=== PATIENT | male | born 1940 | race Caucasian/White ===

== ENCOUNTER → 2018-07-18 14:58 | Outpatient (CLI) | payer MEDICARE, SELFPAY ==
[2018-07-18 15:42] LABS: Add Manual Diff / Slide Review NO; Basophils Percent Auto 1.2 % (0-2); Eosinophils Percent Auto 0.4 % (2-4); Hematocrit 44.8 % (41-53); Hemoglobin 15.5 g/dL (13.5-17.5); Lymphocytes Percent Auto 31.4 % (25-40); Mean Corpuscular HGB Conc 34.5 % (30-36); Mean Corpuscular Hemoglobin 35.2 PG (26-34); Mean Corpuscular Volume 102.1 fL (80-100); Monocytes Percent Auto 8.5 % (3-14); Neutrophils Absolute Auto 2900 /uL (1500-7000); Neutrophils Percent Auto 58.5 % (50-75); Platelet Count 300 X10^3/uL (150-400); Red Blood Cell Count 4.39 X10^6/uL (4.5-5.9); Red Cell Distribution Width 13.2 % (11.6-14.8); White Blood Cell Count 4.9 X10^3/uL (4.5-11.0)
[2018-07-18 16:13] LABS: Alanine Aminotransferase 29 IU/L (21-72); Albumin 4.4 g/dL (3.5-5.0); Albumin Globulin Ratio 1.5 (1.0-2.8); Alkaline Phosphatase 72 U/L (38-126); Aspartate Aminotransferase 29 IU/L (17-59); Bilirubin Total 0.8 mg/dL (0.2-1.3); Blood Urea Nitrogen 16 mg/dL (9-20); Calcium 9.4 mg/dL (8.4-10.2); Carbon Dioxide 27 mmol/L (22-32); Chloride 101 mmol/L (98-107); Cholesterol 262 mg/dL (140-199); Estimated Glomerular Filt Rate > 60.0 mL/min (>60); Globulin 2.9 g/dL (1.7-4.1); Glucose 100 mg/dL (80-110); HDL Cholesterol 104 mg/dL (40-60); HEMOLYSIS < 15 (0-50); LDL Cholesterol Calculated 133 mg/dL (<100); Potassium 4.2 mmol/L (3.4-5.1); Sodium 138 mmol/L (137-145); Total Protein 7.3 g/dL (6.3-8.2); Triglycerides 126 mg/dL (35-150)
== END ==
PROVIDERS: PCP Internal Medicine; Visit Provider Internal Medicine
DX: E78.00 Pure hypercholesterolemia, unspecified (principal); I10 Essential (primary) hypertension; R73.01 Impaired fasting glucose
CPT/HCPCS: 36415; 80053; 80061; 84153; 85025

== ENCOUNTER → 2018-10-31 08:41 | Outpatient (CLI) | payer MEDICARE, SELFPAY ==
[2018-10-31 09:46] LABS: Cholesterol 267 mg/dL (140-199); HDL Cholesterol 97 mg/dL (40-60); LDL Cholesterol Calculated 149 mg/dL (<100); Triglycerides 103 mg/dL (35-150)
[2018-11-02 16:07] LABS: PSA Free % 16 % (calc) (> 25); PSA, Total 11.4 ng/mL (< 4.1)
== END ==
PROVIDERS: Family Provider Urology; PCP Internal Medicine; Visit Provider Internal Medicine
DX: E78.00 Pure hypercholesterolemia, unspecified (principal); Z12.5 Encounter for screening for malignant neoplasm of prostate
CPT/HCPCS: 36415; 80061; 84153; 84154

== ENCOUNTER → 2019-12-09 10:14 | Outpatient (CLI) | payer MEDICARE, SELFPAY ==
--- NOTE | 2019-12-09 | DI.CT.S_ITS ---
PROCEDURE: CT HEAD/BRAIN WO CON INDICATIONS: Other amnesia TECHNIQUE: Noncontrast 4.5 mm thick angled axial sections acquired from the foramen magnum to the vertex, with coronal and sagittal reformats. For radiation dose reduction, the following was used: automated exposure control, adjustment of mA and/or kV according to patient size. COMPARISON: None. FINDINGS: Image quality: Excellent. CSF spaces: Basal cisterns are patent. No extra-axial fluid collections. The ventricles are symmetric in size and shape. Brain: No intracranial bleeds or masses. There is cerebral volume loss for age, with resultant ventricular and sulcal prominence. There are periventricular and deep white matter chronic small vessel ischemic changes. There is intracranial internal carotid artery atherosclerosis. Skull and face: Calvarium and visualized facial bones appear intact, without suspicious lesions. Sinuses: Visualized sinuses and mastoids are clear. IMPRESSION: 1. No acute intracranial process. 2. Moderate atrophy and chronic microvascular ischemic changes. Dictated by: Vale Calderon M.D. on 12/09/2019 at 12:12 Approved by: Vale Calderon M.D. on 12/09/2019 at 12:14
[2019-12-09 13:12] LABS: Alanine Aminotransferase 21 IU/L (<50); Albumin 4.3 g/dL (3.5-5.0); Albumin Globulin Ratio 1.3 (1.0-2.8); Alkaline Phosphatase 80 U/L (38-126); Aspartate Aminotransferase 34 IU/L (17-59); BUN Creatinine Ratio 18.4 (6-22); Bilirubin Total 0.8 mg/dL (0.2-1.3); Blood Urea Nitrogen 14 mg/dL (9-20); Calcium 9.3 mg/dL (8.4-10.2); Carbon Dioxide 29 mmol/L (22-32); Chloride 102 mmol/L (98-107); Cholesterol 263 mg/dL (140-199); Estimated Glomerular Filt Rate > 60.0 mL/min (>60); Globulin 3.3 g/dL (1.7-4.1); Glucose 106 mg/dL (80-110); HDL Cholesterol 80 mg/dL (40-60); HEMOLYSIS < 15 (0-50); LDL Cholesterol Calculated 147 mg/dL (<100); Potassium 4.1 mmol/L (3.4-5.1); Sodium 137 mmol/L (137-145); Total Protein 7.6 g/dL (6.3-8.2); Triglycerides 179 mg/dL (35-150)
[2019-12-09 14:01] LABS: Vitamin B12 677 pg/mL (239-931)
[2019-12-09 14:02] LABS: Thyroid Stimulating Hormone 1.87 uIU/mL (0.47-4.68)
== END ==
PROVIDERS: Family Provider Urology; PCP Internal Medicine; Referring Provider Internal Medicine; Visit Provider Internal Medicine
DX: R41.3 Other amnesia (principal)
CPT/HCPCS: 36415; 70450; 80053; 80061; 82607; 84443

== ENCOUNTER → 2020-05-28 11:24 | Outpatient (CLI) | payer MEDICARE, SELFPAY ==
[2020-05-28 14:27] LABS: Add Manual Diff / Slide Review NO; Basophils Absolute Auto 100 /uL (0-100); Eosinophils Absolute Auto 0 /uL (0-450); Eosinophils Percent Auto 0.4 % (2-4); Hematocrit 42.8 % (41-53); Hemoglobin 14.8 g/dL (13.5-17.5); Lymphocytes Absolute Auto 1300 /uL (1100-4500); Lymphocytes Percent Auto 21.1 % (25-40); Mean Corpuscular HGB Conc 34.6 % (30-36); Mean Corpuscular Hemoglobin 35.1 PG (26-34); Mean Corpuscular Volume 101.5 fL (80-100); Monocytes Absolute Auto 500 /uL (0-900); Monocytes Percent Auto 7.5 % (3-14); Neutrophils Absolute Auto 4200 /uL (1500-7000); Platelet Count 303 X10^3/uL (150-400); Red Blood Cell Count 4.21 X10^6/uL (4.5-5.9); Red Cell Distribution Width 12.9 % (11.6-14.8)
[2020-05-28 15:09] LABS: Alanine Aminotransferase 29 IU/L (<50); Albumin 4.3 g/dL (3.5-5.0); Albumin Globulin Ratio 1.4 (1.0-2.8); Alkaline Phosphatase 78 U/L (38-126); Aspartate Aminotransferase 44 IU/L (17-59); BUN Creatinine Ratio 25.9 (6-22); Bilirubin Total 0.9 mg/dL (0.2-1.3); Blood Urea Nitrogen 21 mg/dL (9-20); Calcium 9.1 mg/dL (8.4-10.2); Carbon Dioxide 29 mmol/L (22-32); Chloride 104 mmol/L (98-107); Cholesterol 192 mg/dL (140-199); Estimated Glomerular Filt Rate > 60.0 mL/min (>60); Globulin 3.1 g/dL (1.7-4.1); Glucose 99 mg/dL (80-110); HDL Cholesterol 93 mg/dL (40-60); HEMOLYSIS 41 (0-50); LDL Cholesterol Calculated 80 mg/dL (<100); Potassium 4.7 mmol/L (3.4-5.1); Sodium 138 mmol/L (137-145); Total Protein 7.4 g/dL (6.3-8.2); Triglycerides 94 mg/dL (35-150)
== END ==
PROVIDERS: Family Provider Urology; PCP Internal Medicine; Referring Provider Internal Medicine; Visit Provider Internal Medicine
DX: E78.2 Mixed hyperlipidemia (principal); I10 Essential (primary) hypertension
CPT/HCPCS: 36415; 80053; 80061; 85025

== ENCOUNTER → 2021-11-15 14:36 | Outpatient (CLI) | payer OTHER, SELFPAY ==
[2021-11-15 17:06] LABS: COVID-19 CEPHEID PCR (VTM/NP) Negative (Negative)
== END ==
PROVIDERS: Family Provider Urology; PCP Internal Medicine; Visit Provider Family Medicine Sleep Medicine
DX: Z20.822 Contact with and (suspected) exposure to COVID-19 (principal)
CPT/HCPCS: C9803; U0003; U0005

== ENCOUNTER 2022-10-23 12:31 | Inpatient (IN) | payer MEDICARE, SELFPAY ==
[2022-10-23] VITALS (32 sets, daily range): BP systolic 165–233; BP diastolic 73–110; PULSE 48–80; RESP 12–26; TEMP 36.6–36.9; O2SAT 94–100; BMI 24.5
--- NOTE | 2022-10-23 12:44 | ED.GENADULT ---
HPI - General Adult General Stated complaint: chest pain SOB Time Seen by Provider: 10/23/22 12:43 Discharge Plan Departure Referrals: Kostas Grady MD [Primary Care Provider] -
--- NOTE | 2022-10-23 12:45 | DI.RAD.S_ITS ---
PROCEDURE: XR CHEST 1V INDICATIONS: chest pain TECHNIQUE: One view of the chest was acquired. COMPARISON: None. FINDINGS: Surgical changes and devices: None. Lungs and pleura: Lungs are clear except for mild bibasilar atelectasis. No pleural effusions or pneumothorax. Mediastinum: Mediastinal contours appear normal. Heart size is normal. Bones and chest wall: No suspicious bony lesions. Overlying soft tissues appear unremarkable. IMPRESSION: Bibasilar atelectasis, no acute abnormality. Dictated by: Emanuel Ortega M.D. on 10/23/2022 at 13:02 Approved by: Emanuel Ortega M.D. on 10/23/2022 at 13:03
[2022-10-23 12:57] LABS: Add Manual Diff / Slide Review NO; Basophils Absolute Auto 100 /uL (0-100); Basophils Percent Auto 0.9 % (0-2); Eosinophils Absolute Auto 0 /uL (0-450); Eosinophils Percent Auto 0.4 % (2-4); Hematocrit 46.5 % (41-53); Hemoglobin 16.1 g/dL (13.5-17.5); Lymphocytes Absolute Auto 1300 /uL (1100-4500); Lymphocytes Percent Auto 18.3 % (25-40); Mean Corpuscular HGB Conc 34.5 % (30-36); Mean Corpuscular Hemoglobin 34.3 PG (26-34); Mean Corpuscular Volume 99.3 fL (80-100); Monocytes Absolute Auto 600 /uL (0-900); Monocytes Percent Auto 8.2 % (3-14); Neutrophils Absolute Auto 5000 /uL (1500-7000); Neutrophils Percent Auto 72.2 % (50-75); Platelet Count 288 X10^3/uL (150-400); Red Blood Cell Count 4.68 X10^6/uL (4.5-5.9); Red Cell Distribution Width 13.5 % (11.6-14.8); White Blood Cell Count 6.9 X10^3/uL (4.5-11.0)
[2022-10-23] MEDS: ASPIRIN 81 MG CHEW TAB 324 MG PO (12:59)
[2022-10-23] MEDS: SODIUM CHLORIDE 0.9% 1,000 ML 150 ML IV (13:00)
[2022-10-23 13:09] LABS: Alanine Aminotransferase 56 IU/L (<50); Albumin 4.4 g/dL (3.5-5.0); Albumin Globulin Ratio 1.2 (1.0-2.8); Alkaline Phosphatase 124 U/L (38-126); Aspartate Aminotransferase 45 IU/L (17-59); BUN Creatinine Ratio 20.5 (6-22); Bilirubin Total 1.1 mg/dL (0.2-1.3); Blood Urea Nitrogen 18 mg/dL (9-20); Calcium 9.4 mg/dL (8.4-10.2); Carbon Dioxide 27 mmol/L (22-32); Chloride 101 mmol/L (98-107); Creatine Kinase 69 U/L (55-170); Estimated Glomerular Filt Rate > 60 mL/min (>60); Globulin 3.7 g/dL (1.7-4.1); Glucose 112 mg/dL (80-110); HEMOLYSIS < 15 (0-50); Lipase 180 U/L (23-300); Potassium 3.7 mmol/L (3.4-5.1); Sodium 136 mmol/L (137-145); Total Protein 8.1 g/dL (6.3-8.2)
[2022-10-23 13:21] LABS: NT-proBNP (BNP-Adult 18+) 348 pg/mL (<450); Troponin I < 0.012 ng/mL (0.01-0.034)
[2022-10-23 13:26] LABS: Procalcitonin 0.06 ng/mL (<0.5)
--- NOTE | 2022-10-23 13:26 | DI.CT.S_ITS ---
PROCEDURE: CT HEAD/BRAIN WO CON INDICATIONS: chest pain TECHNIQUE: Noncontrast 4.5 mm thick angled axial sections acquired from the foramen magnum to the vertex, with coronal and sagittal reformats. For radiation dose reduction, the following was used: automated exposure control, adjustment of mA and/or kV according to patient size. COMPARISON: [facility], CT, CT HEAD/BRAIN WO CON, 12/09/2019, 10:22. FINDINGS: Image quality: Excellent. CSF spaces: Basal cisterns are patent. No extra-axial fluid collections. Ventricles are normal in size and shape. Brain: No midline shift. No intracranial masses or hemorrhage. Macias-white matter interface is normal. Moderate cerebral and cerebellar volume loss with multifocal white matter chronic ischemic change noted. Atherosclerotic calcification noted associated with cavernous segments of both internal carotid arteries. Skull and face: Calvarium and visualized facial bones are intact, without suspicious lesions. Sinuses: Visualized sinuses and mastoids are clear. IMPRESSION: Moderate atrophy and chronic ischemic change without intracranial hemorrhage or mass effect Approved by: Jcarlos Tamayo M.D. on 10/23/2022 at 13:02
--- NOTE | 2022-10-23 14:07 | ED_ITS ---
HPI - Chest Pain <Nereida Guadarrama PA-C - Last Filed: 10/23/22 16:19> General Chief Complaint: Chest Pain Stated Complaint: chest pain SOB Time Seen by Provider: 10/23/22 12:43 Source: patient and family Mode of arrival: Ambulatory Limitations: no limitations History of Present Illness HPI narrative: 82-year-old male with past medical history dementia, hyperlipidemia presents to the ED with 1 day of left-sided chest pain, shortness of breath. 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 In the ED, patient denies any symptoms. Unable to obtain a ROS from patient due to the dementia, however history was provided by his . She states that he has not had any other symptoms recently including fevers, chills, runny nose, cough, nausea, vomiting, abdominal pain, dysuria, diarrhea, lightheadedness, dizziness, syncope. Patient was hypertensive with the highest reading being 231/110. Patient's states that he does not currently take any antihypertensives. He did use to take some several years ago but she is unsure why it was stopped. Related Data Home Medications Medication Instructions Recorded Confirmed atorvastatin 20 mg tablet 20 mg PO DAILY 10/23/22 10/23/22 donepezil 10 mg tablet 10 mg PO QPM 10/23/22 10/23/22 Allergies Allergy/AdvReac Type Severity Reaction Status Date / Time No Known Drug Allergies Allergy Verified 10/23/22 13:04 Review of Systems <Nereida Guadarrama PA-C - Last Filed: 10/23/22 16:19> Review of Systems ROS Unobtainable: All systems reviewed & are unremarkable except as noted in HPI and below Constitutional Constitutional: Denies chills, Denies fatigue, Denies fever(s), Denies frequent falls, Denies lethargy and Denies weakness Eyes Eyes: Denies change in vision, Denies eye discharge, Denies irritation and Denies loss of vision ENT Ears, Nose, Mouth, and Throat: Denies change in voice, Denies dizziness, Denies neck pain, Denies sore throat and Denies throat swelling Cardiovascular Cardiovascular: Reports chest pain, Denies irregular heart rhythm, Denies lightheadedness, Denies palpitations, Reports dyspnea, Denies dyspnea on exertion and Denies orthopnea Respiratory Respiratory: Denies cough, Reports dyspnea, Denies dyspnea on exertion and Denies wheezing Gastrointestinal Gastrointestinal: Denies abdominal pain, Denies change in bowel habits, Denies diarrhea, Denies nausea and Denies vomiting Genitourinary Genitourinary: Denies hematuria, Denies flank pain, Denies urinary incontinence and Denies urinary urgency Musculoskeletal Musculoskeletal: Denies back pain, Denies muscle weakness, Denies neck pain, Denies numbness and Denies tingling Integumentary/Breasts Skin/Breast: Denies pruritus, Denies erythema, Denies rash and Denies wounds Neurologic Neurologic: Denies behavioral changes, Denies confusion, Denies dizziness, Denies frequent falls, Denies loss of vision, Denies numbness, Denies tingling and Denies weakness Psychiatric Psychiatric: Denies anxiety, Denies behavioral changes, Denies confusion, Denies depression, Denies homicidal ideation and Denies suicidal ideation Endocrine Endocrine: Denies fatigue, Denies flushing and Denies palpitations Hematologic/Lymphatic Hematologic/Lymphatic: Denies easy bruising Allergic/Immunologic Allergic/Immunologic: Denies urticaria, Denies throat swelling and Denies wheezing Patient History <Nereida Guadarrama PA-C - Last Filed: 10/23/22 16:19> Social History household members: spouse Smoking Status: Never smoker alcohol intake: current Smoking Status: Never smoker alcohol intake frequency: 0-2 drinks per day Substance Use Type: does not use Exam <Nereida Guadarrama PA-C - Last Filed: 10/23/22 16:19> Narrative Exam Narrative: Const General:?cooperative, healthy appearing and comfortable [facility] Head:?normal to inspection Ears:?hearing grossly normal bilaterally Nose:?external nose normal Face and sinus:?normal facial exam and sinuses nontender Mouth:?oral mucosae normal Throat:?posterior oropharynx normal Eyes General:?appearance normal, both eyes and all related structures Neck Neck:?normal visual inspection and no lymphadenopathy noted Resp Effort & Inspection:?normal respiratory effort Auscultation:?clear to auscultation bilaterally Cardio Rate:?regular rate Rhythm:?regular rhythm Neuro General:?patient alert, patient awake and patient oriented x3 Initial Vital Signs Initial Vital Signs: Vital Signs Temperature 98.5 F 10/23/22 12:39 Pulse Rate 80 10/23/22 12:39 Respiratory Rate 20 10/23/22 12:39 Blood Pressure 227/89 H 10/23/22 12:39 Pulse Oximetry 98 10/23/22 12:39 Oxygen Delivery Method Room Air 10/23/22 12:39 <Eric Brumfield DO - Last Filed: 10/23/22 16:47> Initial Vital Signs Initial Vital Signs: Vital Signs Temperature 98.5 F 10/23/22 12:39 Pulse Rate 80 10/23/22 12:39 Respiratory Rate 20 10/23/22 12:39 Blood Pressure 227/89 H 10/23/22 12:39 Pulse Oximetry 98 10/23/22 12:39 Oxygen Delivery Method Room Air 10/23/22 12:39 Course <Nereida Guadarrama PA-C - Last Filed: 10/23/22 16:19> Orders Ordered: ED Orders 10/23/22 12:14 Complete Blood Count AUTO DIFF Stat Comprehensive Metabolic Panel Stat Lipase Stat NT-proBNP (BNP-Adult 18+) Stat Procalcitonin Stat Troponin & CK Cardiac Panel Stat 10/23/22 12:41 EKG-12 Lead Routine 10/23/22 12:45 XR chest 1V Stat 10/23/22 13:26 CT head/brain wo con Stat 10/23/22 14:00 D Dimer Stat PTT Partial Thromboplastin Carlos Stat Prothrombin Time INR Stat Troponin & CK Cardiac Panel Stat 10/23/22 14:21 EKG-12 Lead Stat 10/23/22 15:23 COVID19 -Nasal RAPID Stat 10/23/22 20:00 Troponin I Urgent 10/24/22 05:00 Basic Metabolic Panel DAILY Complete Blood Count AUTO DIFF DAILY Hemoglobin A1C% w Est Avg Glu Routine Lipid Panel Routine Magnesium DAILY TSH w/ Reflex to FT4 Routine 10/25/22 05:00 Basic Metabolic Panel DAILY Complete Blood Count AUTO DIFF DAILY Magnesium DAILY 10/26/22 05:00 Basic Metabolic Panel DAILY Complete Blood Count AUTO DIFF DAILY Magnesium DAILY Acetaminophen (Acetaminophen 325 Mg Tablet) 650 mg PO Q6H PRN PRN Reason: Fever/Mild Pain (1-3) Atorvastatin Calcium (Atorvastatin 20 Mg Tablet) 20 mg PO DAILY GITA Donepezil HCl (Donepezil 5 Mg Tablet) 10 mg PO QPM GITA Naloxone HCl (Naloxone 0.4 Mg/Ml Vial) 0.2 mg IV Q2MIN PRN PRN Reason: Opiate Reversal Discontinued Medications Aspirin (Aspirin 81 Mg Chew Tab) 324 mg PO NOW ONE Stop: 10/23/22 12:46 Last Admin: 10/23/22 12:59 Dose: 324 mg Documented By: TOVA Sodium Chloride (Normal Saline 0.9%) 1,000 mls @ 150 mls/hr IV CONT GITA Last Infusion: 10/23/22 16:18 Dose: 0 mls/hr Documented By: Admin: 10/23/22 13:00 Dose: 150 mls/hr Documented By: TOVA Labetalol HCl (Labetalol 20 Mg/4 Ml Syringe) 10 mg IV NOW ONE; Protocol Stop: 10/23/22 14:51 Last Admin: 10/23/22 15:15 Dose: 10 mg Documented By: TOVA Vital Signs Vital signs: Vital Signs - 8 hr 10/23/22 12:39 10/23/22 12:50 10/23/22 13:00 Temperature 98.5 F Pulse Rate 80 53 L 74 Respiratory Rate 20 15 23 Blood Pressure 227/89 H Pulse Oximetry 98 99 97 Oxygen Delivery Method Room Air 10/23/22 13:04 10/23/22 13:04 10/23/22 13:10 Temperature Pulse Rate 58 L Respiratory Rate 20 Blood Pressure 231/110 H 233/100 H Pulse Oximetry 98 Oxygen Delivery Method 10/23/22 13:10 10/23/22 13:21 10/23/22 13:21 Temperature Pulse Rate 59 L 55 L Respiratory Rate 16 16 Blood Pressure 230/97 H Pulse Oximetry 98 99 Oxygen Delivery Method Room Air 10/23/22 13:30 10/23/22 13:45 10/23/22 13:55 Temperature Pulse Rate 70 56 L Respiratory Rate 19 21 Blood Pressure 217/102 H Pulse Oximetry 97 98 Oxygen Delivery Method 10/23/22 13:55 10/23/22 14:00 10/23/22 14:00 Temperature Pulse Rate 52 L 52 L Respiratory Rate 16 21 Blood Pressure 208/98 H Pulse Oximetry 98 99 Oxygen Delivery Method 10/23/22 14:10 10/23/22 14:10 10/23/22 14:15 Temperature Pulse Rate 56 L 50 L Respiratory Rate 18 19 Blood Pressure 219/105 H Pulse Oximetry 96 99 Oxygen Delivery Method 10/23/22 14:20 10/23/22 14:20 10/23/22 14:30 Temperature Pulse Rate 51 L Respiratory Rate 20 Blood Pressure 208/99 H 202/91 H Pulse Oximetry 99 Oxygen Delivery Method 10/23/22 14:30 10/23/22 14:40 10/23/22 14:40 Temperature Pulse Rate 62 60 Respiratory Rate 18 12 Blood Pressure 212/102 H Pulse Oximetry 98 98 Oxygen Delivery Method 10/23/22 14:45 10/23/22 15:15 10/23/22 14:54 Temperature Pulse Rate 51 L 53 L Respiratory Rate 14 Blood Pressure 199/88 H 189/101 H Pulse Oximetry 99 Oxygen Delivery Method 10/23/22 14:54 10/23/22 15:00 10/23/22 15:00 Temperature Pulse Rate 53 L 56 L Respiratory Rate 21 21 Blood Pressure 195/91 H Pulse Oximetry 99 99 Oxygen Delivery Method 10/23/22 15:10 10/23/22 15:10 10/23/22 15:15 Temperature Pulse Rate 55 L 51 L Respiratory Rate 17 25 H Blood Pressure 199/88 H Pulse Oximetry 100 99 Oxygen Delivery Method 10/23/22 15:20 10/23/22 15:20 10/23/22 15:22 Temperature Pulse Rate 52 L Respiratory Rate 24 Blood Pressure 203/91 H 183/87 H Pulse Oximetry 98 Oxygen Delivery Method 10/23/22 15:22 10/23/22 15:30 10/23/22 15:30 Temperature Pulse Rate 51 L 48 L Respiratory Rate 16 20 Blood Pressure 176/83 H Pulse Oximetry 98 97 Oxygen Delivery Method Room Air 10/23/22 15:40 10/23/22 15:40 10/23/22 15:45 Temperature Pulse Rate 48 L 52 L Respiratory Rate 20 26 H Blood Pressure 181/87 H Pulse Oximetry 97 97 Oxygen Delivery Method 10/23/22 15:58 10/23/22 15:58 Temperature Pulse Rate 48 L Respiratory Rate 18 Blood Pressure 210/91 H Pulse Oximetry 96 Oxygen Delivery Method <Eric Brumfield, DO - Last Filed: 10/23/22 16:47> Orders Ordered: ED Orders 10/23/22 12:14 Complete Blood Count AUTO DIFF Stat Comprehensive Metabolic Panel Stat Lipase Stat NT-proBNP (BNP-Adult 18+) Stat Procalcitonin Stat Troponin & CK Cardiac Panel Stat 10/23/22 12:41 EKG-12 Lead Routine 10/23/22 12:45 XR chest 1V Stat 10/23/22 13:26 CT head/brain wo con Stat 10/23/22 14:00 D Dimer Stat PTT Partial Thromboplastin Carlos Stat Prothrombin Time INR Stat Troponin & CK Cardiac Panel Stat 10/23/22 14:21 EKG-12 Lead Stat 10/23/22 15:23 COVID19 -Nasal RAPID Stat 10/23/22 20:00 Troponin I Urgent 10/24/22 05:00 Basic Metabolic Panel DAILY Complete Blood Count AUTO DIFF DAILY Hemoglobin A1C% w Est Avg Glu Routine Lipid Panel Routine Magnesium DAILY TSH w/ Reflex to FT4 Routine 10/25/22 05:00 Basic Metabolic Panel DAILY Complete Blood Count AUTO DIFF DAILY Magnesium DAILY 10/26/22 05:00 Basic Metabolic Panel DAILY Complete Blood Count AUTO DIFF DAILY Magnesium DAILY Acetaminophen (Acetaminophen 325 Mg Tablet) 650 mg PO Q6H PRN PRN Reason: Fever/Mild Pain (1-3) Atorvastatin Calcium (Atorvastatin 20 Mg Tablet) 20 mg PO DAILY GITA Donepezil HCl (Donepezil 5 Mg Tablet) 10 mg PO QPM GITA Naloxone HCl (Naloxone 0.4 Mg/Ml Vial) 0.2 mg IV Q2MIN PRN PRN Reason: Opiate Reversal Discontinued Medications Aspirin (Aspirin 81 Mg Chew Tab) 324 mg PO NOW ONE Stop: 10/23/22 12:46 Last Admin: 10/23/22 12:59 Dose: 324 mg Documented By: TOVA Sodium Chloride (Normal Saline 0.9%) 1,000 mls @ 150 mls/hr IV CONT GITA Last Infusion: 10/23/22 16:18 Dose: 0 mls/hr Documented By: Admin: 10/23/22 13:00 Dose: 150 mls/hr Documented By: TOVA Labetalol HCl (Labetalol 20 Mg/4 Ml Syringe) 10 mg IV NOW ONE; Protocol Stop: 10/23/22 14:51 Last Admin: 10/23/22 15:15 Dose: 10 mg Documented By: TOVA Vital Signs Vital signs: Vital Signs - 8 hr 10/23/22 12:39 10/23/22 12:50 10/23/22 13:00 Temperature 98.5 F Pulse Rate 80 53 L 74 Respiratory Rate 20 15 23 Blood Pressure 227/89 H Pulse Oximetry 98 99 97 Oxygen Delivery Method Room Air 10/23/22 13:04 10/23/22 13:04 10/23/22 13:10 Temperature Pulse Rate 58 L Respiratory Rate 20 Blood Pressure 231/110 H 233/100 H Pulse Oximetry 98 Oxygen Delivery Method 10/23/22 13:10 10/23/22 13:21 10/23/22 13:21 Temperature Pulse Rate 59 L 55 L Respiratory Rate 16 16 Blood Pressure 230/97 H Pulse Oximetry 98 99 Oxygen Delivery Method Room Air 10/23/22 13:30 10/23/22 13:45 10/23/22 13:55 Temperature Pulse Rate 70 56 L Respiratory Rate 19 21 Blood Pressure 217/102 H Pulse Oximetry 97 98 Oxygen Delivery Method 10/23/22 13:55 10/23/22 14:00 10/23/22 14:00 Temperature Pulse Rate 52 L 52 L Respiratory Rate 16 21 Blood Pressure 208/98 H Pulse Oximetry 98 99 Oxygen Delivery Method 10/23/22 14:10 10/23/22 14:10 10/23/22 14:15 Temperature Pulse Rate 56 L 50 L Respiratory Rate 18 19 Blood Pressure 219/105 H Pulse Oximetry 96 99 Oxygen Delivery Method 10/23/22 14:20 10/23/22 14:20 10/23/22 14:30 Temperature Pulse Rate 51 L Respiratory Rate 20 Blood Pressure 208/99 H 202/91 H Pulse Oximetry 99 Oxygen Delivery Method 10/23/22 14:30 10/23/22 14:40 10/23/22 14:40 Temperature Pulse Rate 62 60 Respiratory Rate 18 12 Blood Pressure 212/102 H Pulse Oximetry 98 98 Oxygen Delivery Method 10/23/22 14:45 10/23/22 15:15 10/23/22 14:54 Temperature Pulse Rate 51 L 53 L Respiratory Rate 14 Blood Pressure 199/88 H 189/101 H Pulse Oximetry 99 Oxygen Delivery Method 10/23/22 14:54 10/23/22 15:00 10/23/22 15:00 Temperature Pulse Rate 53 L 56 L Respiratory Rate 21 21 Blood Pressure 195/91 H Pulse Oximetry 99 99 Oxygen Delivery Method 10/23/22 15:10 10/23/22 15:10 10/23/22 15:15 Temperature Pulse Rate 55 L 51 L Respiratory Rate 17 25 H Blood Pressure 199/88 H Pulse Oximetry 100 99 Oxygen Delivery Method 10/23/22 15:20 10/23/22 15:20 10/23/22 15:22 Temperature Pulse Rate 52 L Respiratory Rate 24 Blood Pressure 203/91 H 183/87 H Pulse Oximetry 98 Oxygen Delivery Method 10/23/22 15:22 10/23/22 15:30 10/23/22 15:30 Temperature Pulse Rate 51 L 48 L Respiratory Rate 16 20 Blood Pressure 176/83 H Pulse Oximetry 98 97 Oxygen Delivery Method Room Air 10/23/22 15:40 10/23/22 15:40 10/23/22 15:45 Temperature Pulse Rate 48 L 52 L Respiratory Rate 20 26 H Blood Pressure 181/87 H Pulse Oximetry 97 97 Oxygen Delivery Method 10/23/22 15:58 10/23/22 15:58 Temperature Pulse Rate 48 L Respiratory Rate 18 Blood Pressure 210/91 H Pulse Oximetry 96 Oxygen Delivery Method MDM - Chest Pain <Nereida Guadarrama PA-C - Last Filed: 10/23/22 16:19> Lab Data 10/23/22 12:14 10/23/22 12:14 Labs: Lab Results 10/23/22 10/23/22 10/23/22 Range/Units 12:14 12:14 14:00 WBC 6.9 (4.5-11.0) X10^3/uL RBC 4.68 (4.5-5.9) X10^6/uL Hgb 16.1 (13.5-17.5) g/dL Hct 46.5 (41-53) % MCV 99.3 (80-100) fL MCH 34.3 H (26-34) PG MCHC 34.5 (30-36) % RDW 13.5 (11.6-14.8) % Plt Count 288 (150-400) X10^3/uL Neut % (Auto) 72.2 (50-75) % Lymph % (Auto) 18.3 L (25-40) % [place] % (Auto) 8.2 (3-14) % Eos % (Auto) 0.4 L (2-4) % Baso % (Auto) 0.9 (0-2) % Neut # (Auto) 5000 (1583-6186) /uL Lymph # (Auto) 1300 (8970-5491) /uL [place] # (Auto) 600 (0-900) /uL Eos # (Auto) 0 (0-450) /uL Baso # (Auto) 100 (0-100) /uL PT 12.8 H (10.1-12.7) SECONDS INR 1.1 (0.9-1.3) APTT 30 (26-36) SECONDS D-Dimer 322 (<500) ng/ml Sodium 136 L (137-145) mmol/L Potassium 3.7 (3.4-5.1) mmol/L Chloride 101 (98-107) mmol/L Carbon Dioxide 27 (22-32) mmol/L BUN 18 (9-20) mg/dL Creatinine 0.88 (0.66-1.25) mg/dL Estimated GFR > 60 (>60) mL/min BUN/Creatinine Ratio 20.5 (6-22) Glucose 112 H (80-110) mg/dL Calcium 9.4 (8.4-10.2) mg/dL Total Bilirubin 1.1 (0.2-1.3) mg/dL AST 45 (17-59) IU/L ALT 56 H (<50) IU/L Alkaline Phosphatase 124 (38-126) U/L Total Creatine Kinase 69 (55-170) U/L CK-MB (CK-2) TNP CK-MB (CK-2) Rel Index TNP Troponin I < 0.012 (0.01-0.034) ng/mL NT-Pro-B Natriuret Pep 348 (<450) pg/mL Total Protein 8.1 (6.3-8.2) g/dL Albumin 4.4 (3.5-5.0) g/dL Globulin 3.7 (1.7-4.1) g/dL Albumin/Globulin Ratio 1.2 (1.0-2.8) Lipase 180 (23-300) U/L Procalcitonin 0.06 (<0.5) ng/mL SARS-CoV-2 (PCR) (Negative) 10/23/22 10/23/22 Range/Units 14:00 15:23 WBC (4.5-11.0) X10^3/uL RBC (4.5-5.9) X10^6/uL Hgb (13.5-17.5) g/dL Hct (41-53) % MCV (80-100) fL MCH (26-34) PG MCHC (30-36) % RDW (11.6-14.8) % Plt Count (150-400) X10^3/uL Neut % (Auto) (50-75) % Lymph % (Auto) (25-40) % [place] % (Auto) (3-14) % Eos % (Auto) (2-4) % Baso % (Auto) (0-2) % Neut # (Auto) (4563-2580) /uL Lymph # (Auto) (3361-9532) /uL [place] # (Auto) (0-900) /uL Eos # (Auto) (0-450) /uL Baso # (Auto) (0-100) /uL PT (10.1-12.7) SECONDS INR (0.9-1.3) APTT (26-36) SECONDS D-Dimer (<500) ng/ml Sodium (137-145) mmol/L Potassium (3.4-5.1) mmol/L Chloride (98-107) mmol/L Carbon Dioxide (22-32) mmol/L BUN (9-20) mg/dL Creatinine (0.66-1.25) mg/dL Estimated GFR (>60) mL/min BUN/Creatinine Ratio (6-22) Glucose (80-110) mg/dL Calcium (8.4-10.2) mg/dL Total Bilirubin (0.2-1.3) mg/dL AST (17-59) IU/L ALT (<50) IU/L Alkaline Phosphatase (38-126) U/L Total Creatine Kinase 70 (55-170) U/L CK-MB (CK-2) TNP CK-MB (CK-2) Rel Index TNP Troponin I 0.063 H (0.01-0.034) ng/mL NT-Pro-B Natriuret Pep (<450) pg/mL Total Protein (6.3-8.2) g/dL Albumin (3.5-5.0) g/dL Globulin (1.7-4.1) g/dL Albumin/Globulin Ratio (1.0-2.8) Lipase (23-300) U/L Procalcitonin (<0.5) ng/mL SARS-CoV-2 (PCR) Negative (Negative) Urine Dip Bedside Urine Glucose Negative Bedside Urine Bilirubin - Negative Bedside Urine Ketone - Negative Urine Specific [place] 1.010 Bedside Urine Occult Blood - Negative Bedside Urine pH 8.5 Bedside Urine Protein - Negative Bedside Urine Urobilinogen - Negative Bedside Urine Nitrite - Negative Bedside Urine Leukocytes - Negative Esterase MDM Narrative Medical decision making narrative: 82-year-old male with past medical history dementia, hyperlipidemia presents to the ED with 1 day of left-sided chest pain, shortness of breath. Concern for ACS versus CHF exacerbation versus PE versus pneumonia versus URI versus hypertensive emergency other. Will obtain EKG, chest x-ray, labs, troponin, D- dimer, NT proBNP, CT head. Will reassess. EKG without acute ST-T changes. Sinus bradycardia, left axis deviation. Chest x-ray, labs without acute findings. D-dimer, NT proBNP within normal limits. CT head without acute findings. Initial troponin within normal limits. Repeat troponin elevated to 0.063. Patient given 10 mg of labetalol IV for blood press ure control. Blood pressure came down to 176/83. No chest pain. Cardiology was consulted, they recommend continued blood pressure control to keep systolic under 180, troponin bump likely due to demand from the elevated blood pressure. Hospitalist Dr. De Paz was consulted, he graciously agrees to admit the patient for observation and BP control. <Eric Brumfield, - Last Filed: 10/23/22 16:47> Lab Data Labs: Lab Results 10/23/22 10/23/22 10/23/22 Range/Units 12:14 12:14 14:00 WBC 6.9 (4.5-11.0) X10^3/uL RBC 4.68 (4.5-5.9) X10^6/uL Hgb 16.1 (13.5-17.5) g/dL Hct 46.5 (41-53) % MCV 99.3 (80-100) fL MCH 34.3 H (26-34) PG MCHC 34.5 (30-36) % RDW 13.5 (11.6-14.8) % Plt Count 288 (150-400) X10^3/uL Neut % (Auto) 72.2 (50-75) % Lymph % (Auto) 18.3 L (25-40) % [place] % (Auto) 8.2 (3-14) % Eos % (Auto) 0.4 L (2-4) % Baso % (Auto) 0.9 (0-2) % Neut # (Auto) 5000 (0903-2607) /uL Lymph # (Auto) 1300 (2867-5355) /uL [place] # (Auto) 600 (0-900) /uL Eos # (Auto) 0 (0-450) /uL Baso # (Auto) 100 (0-100) /uL PT 12.8 H (10.1-12.7) SECONDS INR 1.1 (0.9-1.3) APTT 30 (26-36) SECONDS D-Dimer 322 (<500) ng/ml Sodium 136 L (137-145) mmol/L Potassium 3.7 (3.4-5.1) mmol/L Chloride 101 (98-107) mmol/L Carbon Dioxide 27 (22-32) mmol/L BUN 18 (9-20) mg/dL Creatinine 0.88 (0.66-1.25) mg/dL Estimated GFR > 60 (>60) mL/min BUN/Creatinine Ratio 20.5 (6-22) Glucose 112 H (80-110) mg/dL Calcium 9.4 (8.4-10.2) mg/dL Total Bilirubin 1.1 (0.2-1.3) mg/dL AST 45 (17-59) IU/L ALT 56 H (<50) IU/L Alkaline Phosphatase 124 (38-126) U/L Total Creatine Kinase 69 (55-170) U/L CK-MB (CK-2) TNP CK-MB (CK-2) Rel Index TNP Troponin I < 0.012 (0.01-0.034) ng/mL NT-Pro-B Natriuret Pep 348 (<450) pg/mL Total Protein 8.1 (6.3-8.2) g/dL Albumin 4.4 (3.5-5.0) g/dL Globulin 3.7 (1.7-4.1) g/dL Albumin/Globulin Ratio 1.2 (1.0-2.8) Lipase 180 (23-300) U/L Procalcitonin 0.06 (<0.5) ng/mL SARS-CoV-2 (PCR) (Negative) 10/23/22 10/23/22 Range/Units 14:00 15:23 WBC (4.5-11.0) X10^3/uL RBC (4.5-5.9) X10^6/uL Hgb (13.5-17.5) g/dL Hct (41-53) % MCV (80-100) fL MCH (26-34) PG MCHC (30-36) % RDW (11.6-14.8) % Plt Count (150-400) X10^3/uL Neut % (Auto) (50-75) % Lymph % (Auto) (25-40) % [place] % (Auto) (3-14) % Eos % (Auto) (2-4) % Baso % (Auto) (0-2) % Neut # (Auto) (7436-7797) /uL Lymph # (Auto) (9886-5652) /uL [place] # (Auto) (0-900) /uL Eos # (Auto) (0-450) /uL Baso # (Auto) (0-100) /uL PT (10.1-12.7) SECONDS INR (0.9-1.3) APTT (26-36) SECONDS D-Dimer (<500) ng/ml Sodium (137-145) mmol/L Potassium (3.4-5.1) mmol/L Chloride (98-107) mmol/L Carbon Dioxide (22-32) mmol/L BUN (9-20) mg/dL Creatinine (0.66-1.25) mg/dL Estimated GFR (>60) mL/min BUN/Creatinine Ratio (6-22) Glucose (80-110) mg/dL Calcium (8.4-10.2) mg/dL Total Bilirubin (0.2-1.3) mg/dL AST (17-59) IU/L ALT (<50) IU/L Alkaline Phosphatase (38-126) U/L Total Creatine Kinase 70 (55-170) U/L CK-MB (CK-2) TNP CK-MB (CK-2) Rel Index TNP Troponin I 0.063 H (0.01-0.034) ng/mL NT-Pro-B Natriuret Pep (<450) pg/mL Total Protein (6.3-8.2) g/dL Albumin (3.5-5.0) g/dL Globulin (1.7-4.1) g/dL Albumin/Globulin Ratio (1.0-2.8) Lipase (23-300) U/L Procalcitonin (<0.5) ng/mL SARS-CoV-2 (PCR) Negative (Negative) Urine Dip Bedside Urine Glucose Negative Bedside Urine Bilirubin - Negative Bedside Urine Ketone - Negative Urine Specific [place] 1.010 Bedside Urine Occult Blood - Negative Bedside Urine pH 8.5 Bedside Urine Protein - Negative Bedside Urine Urobilinogen - Negative Bedside Urine Nitrite - Negative Bedside Urine Leukocytes - Negative Esterase Discharge Plan Departure Patient Disposition: Admitted as Observation Clinical Impression: Hypertension Admit Date/Time: 10/23/22 15:58 Admit Provider: Samir De Paz <Eric Brumfield DO - Last Filed: 10/23/22 16:47> Cosign ED Attending Cosignature Attestation: I was immediately available in the department for consultation. This documentation has been reviewed and I agree with assessment and plan. Supervised by Eric Brumfield DO
[2022-10-23 14:31] LABS: Creatine Kinase 70 U/L (55-170)
[2022-10-23 14:44] LABS: Troponin I 0.063 ng/mL (0.01-0.034)
[2022-10-23] MEDS: LABETALOL 20 MG/4 ML SYRINGE 10 MG IV (15:15)
[2022-10-23 15:38] LABS: INR 1.1 (0.9-1.3); Prothrombin Time 12.8 SECONDS (10.1-12.7)
[2022-10-23 15:40] LABS: D Dimer 322 ng/ml (<500)
[2022-10-23 15:41] LABS: PTT Partial Thromboplastin Tim 30 SECONDS (26-36)
[2022-10-23 15:46] LABS: COVID19 -Nasal RAPID Negative (Negative)
--- NOTE | 2022-10-23 18:11 | PM.HP.1 ---
History of Present Illness History of Present Illness Date Patient Seen: 10/23/22 Time Patient Seen: 18:12 Chief complaint: chest pain SOB Narrative: This is an 82-year-old male with a past medical history of dementia, hyperlipidemia (PCP Dr. Grady) who was brought in by his for chest pain and shortness of breath. He was doing his usual workout with his personal financial representative today, on the way back home he started complaining of some left-sided chest pressure and difficulty breathing. The pressure was left-sided, nonradiating, and other than shortness of breath he denied any diaphoresis, palpitations. He denies recent lower extremity edema or dyspnea on exertion. He has no prior cardiac history. He does have a history of hypertension, though with his continued exercise to come off of medications. His last PCP follow-up was about a year ago. He denies any recent fever, chills, cough. History limited by memory difficulties, but confirmed with spouse at bedside. In the emergency room, the patient was mildly bradycardic, and markedly hypertensive with a blood pressure of 230/110. The remainder of his vital signs were unremarkable. Laboratory evaluation showed an unremarkable CBC, normal coagulation studies, negative D-dimer. Chemistries were unremarkable initially, but on a 2 hour troponin it increased 2.0 6 3. ProBNP is within normal limits at 348. COVID-19 testing was negative. C room discussed with Cardiology who recommended blood pressure control and further observation. He received a dose of IV labetalol and for further management.. PFSH Medical History (Updated 10/23/22 @ 18:16 by Samir De Paz DO) Dementia HLD (hyperlipidemia) Hypertension Surgical History (Updated 10/23/22 @ 18:16 by Samir De Paz DO) No pertinent past surgical history Family History (Updated 10/23/22 @ 18:17 by Samir De Paz DO) Mother Cancer Father CAD (coronary artery disease) Social History household members: spouse Smoking Status: Never smoker alcohol intake: current Meds Home Medications and Allergies Home Medications Medication Instructions Recorded Confirmed Type atorvastatin 20 mg tablet 20 mg PO DAILY 10/23/22 10/23/22 History donepezil 10 mg tablet 10 mg PO QPM 10/23/22 10/23/22 History Allergies Allergy/AdvReac Type Severity Reaction Status Date / Time No Known Drug Allergies Allergy Verified 10/23/22 13:04 Review of Systems Review of Systems Narrative: All other systems reviewed with the patient (and spouse given demntia) and are negative unless otherwise stated. Exam Vital Signs (past 8 hours): - 10/23/22 12:39 10/23/22 12:50 10/23/22 13:00 Temperature 98.5 F Pulse Rate 80 53 L 74 Respiratory Rate 20 15 23 Blood Pressure 227/89 H Pulse Oximetry 98 99 97 Oxygen Delivery Method Room Air 10/23/22 13:04 10/23/22 13:04 10/23/22 13:10 Temperature Pulse Rate 58 L Respiratory Rate 20 Blood Pressure 231/110 H 233/100 H Pulse Oximetry 98 Oxygen Delivery Method 10/23/22 13:10 10/23/22 13:21 10/23/22 13:21 Temperature Pulse Rate 59 L 55 L Respiratory Rate 16 16 Blood Pressure 230/97 H Pulse Oximetry 98 99 Oxygen Delivery Method Room Air 10/23/22 13:30 10/23/22 13:45 10/23/22 13:55 Temperature Pulse Rate 70 56 L Respiratory Rate 19 21 Blood Pressure 217/102 H Pulse Oximetry 97 98 Oxygen Delivery Method 10/23/22 13:55 10/23/22 14:00 10/23/22 14:00 Temperature Pulse Rate 52 L 52 L Respiratory Rate 16 21 Blood Pressure 208/98 H Pulse Oximetry 98 99 Oxygen Delivery Method 10/23/22 14:10 10/23/22 14:10 10/23/22 14:15 Temperature Pulse Rate 56 L 50 L Respiratory Rate 18 19 Blood Pressure 219/105 H Pulse Oximetry 96 99 Oxygen Delivery Method 10/23/22 14:20 10/23/22 14:20 10/23/22 14:30 Temperature Pulse Rate 51 L Respiratory Rate 20 Blood Pressure 208/99 H 202/91 H Pulse Oximetry 99 Oxygen Delivery Method 10/23/22 14:30 10/23/22 14:40 10/23/22 14:40 Temperature Pulse Rate 62 60 Respiratory Rate 18 12 Blood Pressure 212/102 H Pulse Oximetry 98 98 Oxygen Delivery Method 10/23/22 14:45 10/23/22 15:15 10/23/22 14:54 Temperature Pulse Rate 51 L 53 L Respiratory Rate 14 Blood Pressure 199/88 H 189/101 H Pulse Oximetry 99 Oxygen Delivery Method 10/23/22 14:54 10/23/22 15:00 10/23/22 15:00 Temperature Pulse Rate 53 L 56 L Respiratory Rate 21 21 Blood Pressure 195/91 H Pulse Oximetry 99 99 Oxygen Delivery Method 10/23/22 15:10 10/23/22 15:10 10/23/22 15:15 Temperature Pulse Rate 55 L 51 L Respiratory Rate 17 25 H Blood Pressure 199/88 H Pulse Oximetry 100 99 Oxygen Delivery Method 10/23/22 15:20 10/23/22 15:20 10/23/22 15:22 Temperature Pulse Rate 52 L Respiratory Rate 24 Blood Pressure 203/91 H 183/87 H Pulse Oximetry 98 Oxygen Delivery Method 10/23/22 15:22 10/23/22 15:30 10/23/22 15:30 Temperature Pulse Rate 51 L 48 L Respiratory Rate 16 20 Blood Pressure 176/83 H Pulse Oximetry 98 97 Oxygen Delivery Method Room Air 10/23/22 15:40 10/23/22 15:40 10/23/22 15:45 Temperature Pulse Rate 48 L 52 L Respiratory Rate 20 26 H Blood Pressure 181/87 H Pulse Oximetry 97 97 Oxygen Delivery Method 10/23/22 15:58 10/23/22 15:58 10/23/22 16:00 Temperature Pulse Rate 48 L Respiratory Rate 18 Blood Pressure 210/91 H 202/95 H Pulse Oximetry 96 Oxygen Delivery Method 10/23/22 16:00 10/23/22 16:15 Temperature Pulse Rate 49 L 48 L Respiratory Rate 19 21 Blood Pressure Pulse Oximetry 97 Oxygen Delivery Method Room Air Oxygen Delivery Method Room Air Narrative Exam Narrative: General:? Patient is well developed and well nourished, in no distress at this time. HEENT:? Normocephalic, atraumatic, extraocular muscles intact, oral pharynx is clear and mucous membranes are moist. Neck: supple and symmetric, trachea is midline, no cervical adenopathy. Negative for JVD Chest:? Normal AP diameter and contour without kyphoscoliosis, no tachypnea, equal chest rise bilaterally. Lungs:? CTA b/l no wheezing rhonchi or rales. Cardio:?bradycardic, regular rhythm, with 2-3/6 systolic murmur. Abdomen: S NT ND. Musculoskeletal:? Muscle strength and tone are equal within normal limits, no deformity. Extremities: No edema or joint effusions. No cyanosis or clubbing. Skin:? Pale,? Warm to touch,dry and intact without rashes, ulcerations or petechiae.? Neuro:? no focal deficits, mildly confused with cognitive impairment evident. Psych:? Patient has a well-kept appearance, appropriate affect. Objective ECG Impression: Sinus bradycardia with LVH, TWI noted inferior leads, similar on repeat. No prior tracing available for review. No ST elevations concerning for acute ischemia. Labs 10/23/22 12:14 10/23/22 12:14 Labs: Laboratory Results - last 24 hr 10/23/22 10/23/22 10/23/22 12:14 12:14 14:00 WBC 6.9 RBC 4.68 Hgb 16.1 Hct 46.5 MCV 99.3 MCH 34.3 H MCHC 34.5 RDW 13.5 Plt Count 288 Neut % (Auto) 72.2 Lymph % (Auto) 18.3 L [place] % (Auto) 8.2 Eos % (Auto) 0.4 L Baso % (Auto) 0.9 Neut # (Auto) 5000 Lymph # (Auto) 1300 [place] # (Auto) 600 Eos # (Auto) 0 Baso # (Auto) 100 PT 12.8 H INR 1.1 APTT 30 D-Dimer 322 Sodium 136 L Potassium 3.7 Chloride 101 Carbon Dioxide 27 BUN 18 Creatinine 0.88 Estimated GFR > 60 BUN/Creatinine Ratio 20.5 Glucose 112 H Calcium 9.4 Total Bilirubin 1.1 AST 45 ALT 56 H Alkaline Phosphatase 124 Total Creatine Kinase 69 CK-MB (CK-2) TNP CK-MB (CK-2) Rel Index TNP Troponin I < 0.012 NT-Pro-B Natriuret Pep 348 Total Protein 8.1 Albumin 4.4 Globulin 3.7 Albumin/Globulin Ratio 1.2 Lipase 180 Procalcitonin 0.06 SARS-CoV-2 (PCR) 10/23/22 10/23/22 14:00 15:23 WBC RBC Hgb Hct MCV MCH MCHC RDW Plt Count Neut % (Auto) Lymph % (Auto) [place] % (Auto) Eos % (Auto) Baso % (Auto) Neut # (Auto) Lymph # (Auto) [place] # (Auto) Eos # (Auto) Baso # (Auto) PT INR APTT D-Dimer Sodium Potassium Chloride Carbon Dioxide BUN Creatinine Estimated GFR BUN/Creatinine Ratio Glucose Calcium Total Bilirubin AST ALT Alkaline Phosphatase Total Creatine Kinase 70 CK-MB (CK-2) TNP CK-MB (CK-2) Rel Index TNP Troponin I 0.063 H NT-Pro-B Natriuret Pep Total Protein Albumin Globulin Albumin/Globulin Ratio Lipase Procalcitonin SARS-CoV-2 (PCR) Negative Assessment & Plan Assessment & Plan narrative: 1. Hypertensive urgency - given single dose of IV labetalol, start antihypertensive with losartan 50 mg starting this evening. - will continue to adjust depending on response to initial therapies. - aggressive therapies such as intravenous medications for BP control (for possible, yet less likely hypertensive emergency) at this time are deemed to have more risk than benefits given age and dementia, though if troponin continues to rise will consider more aggressive therapies. 2. Chest pain - EKG with TWI inferiorly but not dynamic and stable on repeat. Chest pain has since resolved. - will repeat another troponin at 8 hours after initial, as 2 hour study was 0.063. - continue cardiac monitoring - if repeat troponin is improved, would be intermediate risk at this time and would proceed with stress testing given his good cardiopulmonary status and activity level. Would need nuclear testing as patient does have some balance issues at baseline per spouse. Will review with spouse tomorrow AM to see if positive if she would want to proceed with more invasive testing and proceed with medical management but current plan is if troponin improves to proceed with nuclear stress tomorrow along with TTE. -TSH, A1c, lipids ordered for AM. 3. Myocardial injury / elevated troponin - troponin 0.063, initially was negative. Continue to trend. Suspect myocardial injury at this time. 4. HLD - continue statin 5. Dementia - continue donepezil. Code: Full, surrogate and decision maker given dementia is patient's spouse DVT: Lovenox daily I have utilized all available immediate resources to obtain, update, or review the patient's current medications. Additional history was obtained from ER provider and spouse at bedside. Reviewed plan of care with overnight provider and bedside RN. COVID-19 COVID-19 status: Negative Quality VTE Deep Vein Thrombosis/Pulmonary Embolism Present on Admission: No
[2022-10-23] MEDS: LOSARTAN 50 MG TABLET PO (18:46)
[2022-10-23] MEDS: QUETIAPINE 25 MG TABLET PO (19:50)
--- NOTE | 2022-10-23 21:14 | PM.EVENT ---
Event Note Date Patient Seen: 10/23/22 Time Patient Seen: 21:14 Event Note (Rapid Response, Code, or fall): 1. NSTEMI, acute-initial troponin normal, repeat 0.063, 8:00 pm repeat 1.6. Phone consult with Dr. Leong [facility] -agreed to accept patient for immediate transfer. -vitals are stable patient is asymptomatic temp 98.3?, BP 165/73, pulse 56, RR 16, O2 saturation 96% on room air. Denies any discomfort, chest pain, shortness breast, diaphoresis. Patient is pleasantly confused due to dementia. -consult Dr. Jacklyn dixonists -300 mg Plavix loading dose followed by Plavix 75 mg daily -continue ASA -initiate NSTEMI/protocol heparin drip -trend PTT, troponin q.6, stat EKG -neuro checks, assess for bleeding, guaiac as needed -notified who is at the bedside, discussed her 's change in condition, plan of care, and planned transfer to [facility]. -initiated transfer to [facility]ist, hospital service is currently looking for a bed and will do provider to provider consult with hospitalist service once bed is available.
[2022-10-23] MEDS: CLOPIDOGREL 75 MG TABLET 300 MG PO (21:33)
[2022-10-23] MEDS: ATORVASTATIN 20 MG TABLET 40 MG PO (21:33)
[2022-10-23] MEDS: DONEPEZIL 5 MG TABLET 10 MG PO (21:33)
[2022-10-23 22:08] LABS: Hematocrit 42.2 % (41-53); Hemoglobin 14.6 g/dL (13.5-17.5); PTT Partial Thromboplastin Tim 31 SECONDS (26-36); Platelet Count 262 X10^3/uL (150-400)
[2022-10-23 22:13] LABS: INR 1.2 (0.9-1.3); Prothrombin Time 13.5 SECONDS (10.1-12.7)
[2022-10-23] MEDS: HEPARIN 5,000 UNIT/ML VIAL 4000 UNIT IV (22:17)
[2022-10-23] MEDS: HEPARIN DRIP 25,000 UNIT/500 ML IV.SOLN 15.567 UNIT IV (22:17)
[2022-10-24] VITALS (7 sets, daily range): BP systolic 154–171; BP diastolic 71–96; PULSE 50–93; RESP 18–20; TEMP 36.4–36.9; O2SAT 94–97
[2022-10-24 04:34] LABS: Add Manual Diff / Slide Review NO; Basophils Absolute Auto 100 /uL (0-100); Basophils Percent Auto 1.2 % (0-2); Eosinophils Absolute Auto 100 /uL (0-450); Eosinophils Percent Auto 1.2 % (2-4); Hematocrit 41.3 % (41-53); Hemoglobin 14.1 g/dL (13.5-17.5); Lymphocytes Absolute Auto 2700 /uL (1100-4500); Lymphocytes Percent Auto 33.6 % (25-40); Mean Corpuscular HGB Conc 34.2 % (30-36); Mean Corpuscular Hemoglobin 34.1 PG (26-34); Mean Corpuscular Volume 99.7 fL (80-100); Monocytes Absolute Auto 700 /uL (0-900); Monocytes Percent Auto 8.4 % (3-14); Neutrophils Absolute Auto 4500 /uL (1500-7000); Neutrophils Percent Auto 55.6 % (50-75); Platelet Count 258 X10^3/uL (150-400); Red Blood Cell Count 4.14 X10^6/uL (4.5-5.9); Red Cell Distribution Width 13.6 % (11.6-14.8)
[2022-10-24 04:43] LABS: BUN Creatinine Ratio 19.5 (6-22); Blood Urea Nitrogen 16 mg/dL (9-20); Calcium 8.5 mg/dL (8.4-10.2); Carbon Dioxide 25 mmol/L (22-32); Chloride 106 mmol/L (98-107); Cholesterol 161 mg/dL (140-199); Estimated Glomerular Filt Rate > 60 mL/min (>60); Glucose 104 mg/dL (80-110); HDL Cholesterol 68 mg/dL (40-60); HEMOLYSIS < 15 (0-50); LDL Cholesterol Calculated 72 mg/dL (<100); Magnesium 2.1 mg/dL (1.6-2.3); Potassium 3.9 mmol/L (3.4-5.1); Sodium 138 mmol/L (137-145); Triglycerides 105 mg/dL (35-150)
[2022-10-24 05:02] LABS: PTT Partial Thromboplastin Tim 124 SECONDS (26-36)
[2022-10-24 05:31] LABS: TSH w/ Reflex to FT4 2.23 uIU/mL (0.47-4.68)
[2022-10-24] MEDS: LOSARTAN 50 MG TABLET PO (08:18)
[2022-10-24] MEDS: CLOPIDOGREL 75 MG TABLET PO (08:18)
[2022-10-24] MEDS: ASPIRIN EC 81 MG TABLET PO (08:25)
--- NOTE | 2022-10-24 09:15 | PM.DS.1 ---
History of Present Illness History of Present Illness Date Patient Seen: 10/24/22 Time Patient Seen: 09:15 Date of Onset of Symptoms: 10/23/22 Chief complaint: chest pain SOB Narrative: This is an 82-year-old male with a past medical history of dementia, hyperlipidemia (PCP Dr. Grady) who was brought in by his for chest pain and shortness of breath. He was doing his usual workout with his personal injury litigation paralegal today, on the way back home he started complaining of some left-sided chest pressure and difficulty breathing. The pressure was left-sided, nonradiating, and other than shortness of breath he denied any diaphoresis, palpitations. He denies recent lower extremity edema or dyspnea on exertion. He has no prior cardiac history. He does have a history of hypertension, though with his continued exercise to come off of medications. His last PCP follow-up was about a year ago. He denies any recent fever, chills, cough. History limited by memory difficulties, but confirmed with spouse at bedside. In the emergency room, the patient was mildly bradycardic, and markedly hypertensive with a blood pressure of 230/110. The remainder of his vital signs were unremarkable. Laboratory evaluation showed an unremarkable CBC, normal coagulation studies, negative D-dimer. Chemistries were unremarkable initially, but on a 2 hour troponin it increased 2.0 6 3. ProBNP is within normal limits at 348. COVID-19 testing was negative. C room discussed with Cardiology who recommended blood pressure control and further observation. He received a dose of IV labetalol and for further management.. Discharge Providers Provider Date of admission: 10/23/22 15:58 Discharge Date: 10/24/22 Primary care physician: Kostas Grady MD Consults: 10/23/22 21:11 Consult to Physician Routine Comment: Consulting Provider: Ari Leong Reason for consultation: NSTEMI Has provider been notified: Yes Discharge provider: Samir De Paz DO Summary Hospital Course Discharge Diagnosis: 1. NSTEMI 2. HTN 3. HLD 4. Dementia Hospital Course: This is an 82 year old male with PMH of HLD, dementia who developed chest pressure when working out with a personal injury litigation paralegal yesterday. Chest pressure lasted about 2 hours per patient's spouse before improving. He received some nitroglycerin initially. Initial troponin was negative, slight increase on 2 hour study. He was markedly hypertensive on arrival, mildly bradycardic with initial BP 230/111. He was given single dose of IV labetalol in the ER, and losartan 50 mg yesterday evening. BP has improved but remains elevated with BP 160/90 at 0800. Overnight, he had no events on telemetry, but troponin continued to rise, to 1.6 initially when cardiology was contacted and recommended for asa, plavix, and heparin infusion and transfer to [facility] for LHC. Troponin continues to rise this morning and is up to 5.830 at 0800. He was given morning dose of losartan 50 mg at 0800, beta crow was not ordered given patient's presenting bradycardia (rate low 50s generally). Last oral intake was just before 0900. He remains on heparin infusion and chest pain free this morning. EKG over the course of his stay was stable, but there were some T wave inversions inferiorly. Cholesterol panel was obtained this am, and showed TG 105, TC 161, LDL 72, and HDL 68. TSH was 2.23, A1c is unfortunately a send out currently and not available at the time of transfer. Accepting hospitalist at [facility] is Dr. Lovelace. Echocardiogram has also been ordered, but had not been performed prior to transfer to accepting facility. Time Spent with Patient Time spent: Greater than 30 minutes Exam Vital Signs (past 8 hours): - 10/24/22 03:03 10/24/22 04:00 10/24/22 05:03 Temperature 98.5 F Pulse Rate 50 L Respiratory Rate 18 Blood Pressure 163/74 H 154/71 H Pulse Oximetry 97 97 Oxygen Delivery Method Room Air Oxygen Flow Rate 0 10/24/22 08:18 Temperature Pulse Rate 93 H Respiratory Rate Blood Pressure 162/96 H Pulse Oximetry Oxygen Delivery Method Oxygen Flow Rate Oxygen Delivery Method Room Air Oxygen Flow Rate 0 Narrative Exam Narrative: General:? Patient is well developed and well nourished, in no distress at this time. HEENT:? Normocephalic, atraumatic, extraocular muscles intact, oral pharynx is clear and mucous membranes are moist. Neck: supple and symmetric, trachea is midline, no cervical adenopathy. Negative for JVD Chest:? Normal AP diameter and contour without kyphoscoliosis, no tachypnea, equal chest rise bilaterally. Lungs:? CTA b/l no wheezing rhonchi or rales. Cardio:?bradycardic, regular rhythm, with 2-3/6 systolic murmur. Abdomen: S NT ND. Musculoskeletal:? Muscle strength and tone are equal within normal limits, no deformity. Extremities: No edema or joint effusions. No cyanosis or clubbing. Skin:? Pale,? Warm to touch,dry and intact without rashes, ulcerations or petechiae.? Neuro:? no focal deficits, mildly confused with cognitive impairment evident. Psych:? Patient has a well-kept appearance, appropriate affect. Objective Labs 10/24/22 04:20 10/24/22 04:20 Labs: Laboratory Results - last 24 hr 10/23/22 10/23/22 10/23/22 12:14 12:14 14:00 WBC 6.9 RBC 4.68 Hgb 16.1 Hct 46.5 MCV 99.3 MCH 34.3 H MCHC 34.5 RDW 13.5 Plt Count 288 Neut % (Auto) 72.2 Lymph % (Auto) 18.3 L [place] % (Auto) 8.2 Eos % (Auto) 0.4 L Baso % (Auto) 0.9 Neut # (Auto) 5000 Lymph # (Auto) 1300 [place] # (Auto) 600 Eos # (Auto) 0 Baso # (Auto) 100 PT 12.8 H INR 1.1 APTT 30 D-Dimer 322 Sodium 136 L Potassium 3.7 Chloride 101 Carbon Dioxide 27 BUN 18 Creatinine 0.88 Estimated GFR > 60 BUN/Creatinine Ratio 20.5 Glucose 112 H Calcium 9.4 Magnesium Total Bilirubin 1.1 AST 45 ALT 56 H Alkaline Phosphatase 124 Total Creatine Kinase 69 CK-MB (CK-2) TNP CK-MB (CK-2) Rel Index TNP Troponin I < 0.012 NT-Pro-B Natriuret Pep 348 Total Protein 8.1 Albumin 4.4 Globulin 3.7 Albumin/Globulin Ratio 1.2 Triglycerides Cholesterol LDL Cholesterol, Calc HDL Cholesterol Lipase 180 Procalcitonin 0.06 TSH SARS-CoV-2 (PCR) 10/23/22 10/23/22 10/23/22 14:00 15:23 20:03 WBC RBC Hgb Hct MCV MCH MCHC RDW Plt Count Neut % (Auto) Lymph % (Auto) [place] % (Auto) Eos % (Auto) Baso % (Auto) Neut # (Auto) Lymph # (Auto) [place] # (Auto) Eos # (Auto) Baso # (Auto) PT INR APTT D-Dimer Sodium Potassium Chloride Carbon Dioxide BUN Creatinine Estimated GFR BUN/Creatinine Ratio Glucose Calcium Magnesium Total Bilirubin AST ALT Alkaline Phosphatase Total Creatine Kinase 70 CK-MB (CK-2) TNP CK-MB (CK-2) Rel Index TNP Troponin I 0.063 H 1.600 H* NT-Pro-B Natriuret Pep Total Protein Albumin Globulin Albumin/Globulin Ratio Triglycerides Cholesterol LDL Cholesterol, Calc HDL Cholesterol Lipase Procalcitonin TSH SARS-CoV-2 (PCR) Negative 10/23/22 10/23/22 10/23/22 21:45 21:45 21:45 WBC RBC Hgb 14.6 Hct 42.2 MCV MCH MCHC RDW Plt Count 262 Neut % (Auto) Lymph % (Auto) [place] % (Auto) Eos % (Auto) Baso % (Auto) Neut # (Auto) Lymph # (Auto) [place] # (Auto) Eos # (Auto) Baso # (Auto) PT 13.5 H INR 1.2 APTT 31 D-Dimer Sodium Potassium Chloride Carbon Dioxide BUN Creatinine Estimated GFR BUN/Creatinine Ratio Glucose Calcium Magnesium Total Bilirubin AST ALT Alkaline Phosphatase Total Creatine Kinase CK-MB (CK-2) CK-MB (CK-2) Rel Index Troponin I NT-Pro-B Natriuret Pep Total Protein Albumin Globulin Albumin/Globulin Ratio Triglycerides Cholesterol LDL Cholesterol, Calc HDL Cholesterol Lipase Procalcitonin TSH SARS-CoV-2 (PCR) 10/24/22 10/24/22 10/24/22 02:01 04:20 04:20 WBC 8.0 RBC 4.14 L Hgb 14.1 Hct 41.3 MCV 99.7 MCH 34.1 H MCHC 34.2 RDW 13.6 Plt Count 258 Neut % (Auto) 55.6 Lymph % (Auto) 33.6 [place] % (Auto) 8.4 Eos % (Auto) 1.2 L Baso % (Auto) 1.2 Neut # (Auto) 4500 Lymph # (Auto) 2700 [place] # (Auto) 700 Eos # (Auto) 100 Baso # (Auto) 100 PT INR APTT 124 H* D D-Dimer Sodium Potassium Chloride Carbon Dioxide BUN Creatinine Estimated GFR BUN/Creatinine Ratio Glucose Calcium Magnesium Total Bilirubin AST ALT Alkaline Phosphatase Total Creatine Kinase CK-MB (CK-2) CK-MB (CK-2) Rel Index Troponin I 4.060 H* NT-Pro-B Natriuret Pep Total Protein Albumin Globulin Albumin/Globulin Ratio Triglycerides Cholesterol LDL Cholesterol, Calc HDL Cholesterol Lipase Procalcitonin TSH SARS-CoV-2 (PCR) 10/24/22 10/24/22 10/24/22 04:20 04:20 08:07 WBC RBC Hgb Hct MCV MCH MCHC RDW Plt Count Neut % (Auto) Lymph % (Auto) [place] % (Auto) Eos % (Auto) Baso % (Auto) Neut # (Auto) Lymph # (Auto) [place] # (Auto) Eos # (Auto) Baso # (Auto) PT INR APTT D-Dimer Sodium 138 Potassium 3.9 Chloride 106 Carbon Dioxide 25 BUN 16 Creatinine 0.82 Estimated GFR > 60 BUN/Creatinine Ratio 19.5 Glucose 104 Calcium 8.5 Magnesium 2.1 Total Bilirubin AST ALT Alkaline Phosphatase Total Creatine Kinase CK-MB (CK-2) CK-MB (CK-2) Rel Index Troponin I 5.830 H* NT-Pro-B Natriuret Pep Total Protein Albumin Globulin Albumin/Globulin Ratio Triglycerides 105 Cholesterol 161 LDL Cholesterol, Calc 72 HDL Cholesterol 68 H Lipase Procalcitonin TSH 2.23 SARS-CoV-2 (PCR) PFSH Medical History (Updated 10/23/22 @ 18:16 by Samir De Paz DO) Dementia HLD (hyperlipidemia) Hypertension Surgical History (Updated 10/23/22 @ 18:16 by Samir De Paz DO) No pertinent past surgical history Family History (Updated 10/23/22 @ 18:17 by Samir De Paz DO) Mother Cancer Father CAD (coronary artery disease) Social History household members: spouse Smoking Status: Never smoker alcohol intake: current Discharge Plan Discharge Plan Patient Disposition: General Acute Hospital Under care of provider: Dr. Lovelace Provider Discharge Comment: Please see discharge summary Discharge Health Status Precautions: [place] Diet/Activity/Treatments Diet: Nothing by Mouth Liquid consistency: Normal/Thin Food texture: Regular Activity: Bed rest on heparin infusion Discharge Data Primary Care Provider: Kostas Grady V Attending Provider: Samir De Paz Admaida Date/Time: 10/23/22 15:58 Quality VTE Deep Vein Thrombosis/Pulmonary Embolism Present on Admission: No
--- NOTE | 2022-10-24 10:31 | PC.NURSE ---
Addendum entered by Dillan Dodson R.N. 10/24/22 13:25: 12:40Pt discharged to the care of Ambulance crew and Merged With [facility]. [facility] and CCU both given report as well as ambulance crew. IV's left in place as heparin gtt will continue during transport. Pt also on Tele. to meet Pt at [facility]. Belongings accounted for and Pt Transferred Original Note: Pt alert, Confused, follows commands, aware of Lila in room. Calm cooperative. Discussing plan with Lila regarding transfer to [facility]. Pt transferring for Nstemi cardiac cath. Present troponin 4.083. Dr. De Paz and [facility] confectionery laboratory manager aware of lab result. Report given to [facility]. and Pt aware ambulance betty be here at 12:55 for transfer to [facility].
--- NOTE | 2022-10-24 10:48 | CM.DANOTE ---
Patient is an 82 yo male who was admitted on 10/23/22 for SOB/Chest Pain. Pt has [facility] for insurance and his PCP is Dr. Kostas Grady. EMR was reviewed. Per MD, pt with hx of dementia and poor historian and admitted for hypertensive urgency and chest pain r/o. Pt's trops increased and Sporting Goods Sales Associate recommends hospital transfer. Per MD, pt accepted at [facility] by Dr. Lovelace and adult care provider set up transport at 1300 for transfer. SW met bedside with pt and spouse and explained role and pt able to participate some in discussion but spouse primarily involved. They confirm they live in [place] and quite active and healthy at baseline and pt does not use DME and exercises regularly and has a application trainer. Spouse assists with meds and meal prep and driving. Spouse is about 10 years younger than pt and very capable. They deny any hx of HH or SNF or hospitalizations. SW explained process of hospital transfer and a vacation planner likely at [facility] to assist with d/c from their facility. Spouse very appreciative. Spouse is requesting to ride along in transport as pt gets confused and upset. SW updated EYE SPECIALIST and glove turner and former and they will make sure transport knows spouse is riding along in ambulance. Plan: Patient to transfer to [facility] for higher level of Cardiac needs today via ambulance at 1300 with spouse riding along. ALEX Malone Discharge Planning/Care Management CM Discharge Assessment Start: 10/24/22 09:39 Freq: Status: Active Protocol: Document 10/24/22 09:39 BF (Rec: 10/24/22 09:43 BF [id number]) Discharge Planning Assessment Assigned Atomic Spectroscopist ALEX Alegre DPOA/Assigned Designee Name spouse Lila Contact Information [phone] Advance Directives? No Advance Directives on File Yes History Provided By Patient,Significant Other, Medical Record Has Patient been admitted in last 30 No days? Prior Living Arrangements House Household Members spouse Type of transporation used prior to Relies on Others admit Independent with ADL's No Is patient alert and oriented? No Needs Assistance With Meal Prep,Managing Medications ,Home Chores / Shopping Caregiver for Another No DME Already Rented / Owned Cane Barriers to Discharge No Discharge Plan Transfer to Higher Level of Care Transportation Arrangement Transfer to [facility] via BLS/ALS Referrals Initiated None needed Whiteboard Updated in Patient Room with Yes name and ext. # of Atomic Spectroscopist Review Status In Process Please Provide Date Initial DC 10/24/22 Assessment Was Performed Next Review Type Continued Stay Review
[2022-10-24 12:27] LABS: PTT Partial Thromboplastin Tim 43 SECONDS (26-36)
[2022-10-25 04:35] LABS: Labcorp Hemoglobin (Hb) A1c 5.8 % (4.8-5.6)
== END 2022-10-24 12:40 | disposition short-term general hospital (02) | DRG 282 ==
LOC: ED 15:58 → AC 15:59
PROVIDERS: Emergency Medicine; Nurse Practitioner Family; Admitting Provider Internal Medicine; Emergency Provider Student in an Organized Health Care Education/Training Program; Family Provider Urology; PCP Internal Medicine; Referring Provider Student in an Organized Health Care Education/Training Program; Visit Provider Internal Medicine
DX: I21.4 Non-ST elevation (NSTEMI) myocardial infarction (principal); E78.5 Hyperlipidemia, unspecified; F03.90 Unspecified dementia, unspecified severity, without behavioral disturbance, psychotic disturbance, mood disturbance, and anxiety; I10 Essential (primary) hypertension; Z20.822 Contact with and (suspected) exposure to COVID-19
CPT/HCPCS: 36415; 70450; 71045; 80048; 80053; 80061; 81003; 82550; 83036; 83690; 83735; 83880; 84145; 84443; 84484; 85014; 85018; 85025; 85049; 85379; 85610; 85730; 87635; 93005; 96374; 99284; 99285; C9803; G0378; J1644

== ENCOUNTER → 2023-01-10 10:20 | Outpatient (CLI) | payer MEDICARE, SELFPAY ==
[2022-10-23 16:01] VITALS: BMI 24.5
[2023-01-10 10:49] LABS: Hematocrit 41.7 % (41-53); Hemoglobin 14.6 g/dL (13.5-17.5); Mean Corpuscular HGB Conc 34.9 % (30-36); Mean Corpuscular Hemoglobin 35.1 PG (26-34); Mean Corpuscular Volume 100.5 fL (80-100); Platelet Count 350 X10^3/uL (150-400); Red Blood Cell Count 4.15 X10^6/uL (4.5-5.9); Red Cell Distribution Width 13.6 % (11.6-14.8)
[2023-01-10 11:01] LABS: Alanine Aminotransferase 54 IU/L (<50); Albumin 4.2 g/dL (3.5-5.0); Albumin Globulin Ratio 1.2 (1.0-2.8); Alkaline Phosphatase 101 U/L (38-126); Aspartate Aminotransferase 51 IU/L (17-59); BUN Creatinine Ratio 17.9 (6-22); Bilirubin Total 0.8 mg/dL (0.2-1.3); Blood Urea Nitrogen 15 mg/dL (9-20); Calcium 9.3 mg/dL (8.4-10.2); Carbon Dioxide 29 mmol/L (22-32); Chloride 103 mmol/L (98-107); Cholesterol 192 mg/dL (140-199); Estimated Glomerular Filt Rate > 60 mL/min (>60); Globulin 3.6 g/dL (1.7-4.1); Glucose 107 mg/dL (80-110); HDL Cholesterol 97 mg/dL (40-60); HEMOLYSIS 28 (0-50); LDL Cholesterol Calculated 60 mg/dL (<100); Potassium 4.6 mmol/L (3.4-5.1); Sodium 135 mmol/L (137-145); Total Protein 7.8 g/dL (6.3-8.2); Triglycerides 177 mg/dL (35-150)
[2023-01-10 11:51] LABS: TSH w/ Reflex to FT4 2.47 uIU/mL (0.47-4.68)
[2023-01-10 18:55] LABS: Vitamin B12 518 pg/mL (239-931)
== END ==
PROVIDERS: Family Provider Urology; PCP Internal Medicine; Referring Provider Internal Medicine; Visit Provider Internal Medicine
DX: E78.2 Mixed hyperlipidemia (principal); I10 Essential (primary) hypertension; I25.10 Atherosclerotic heart disease of native coronary artery without angina pectoris; E53.8 Deficiency of other specified B group vitamins
CPT/HCPCS: 36415; 80053; 80061; 82607; 84443; 85027

== ENCOUNTER → 2023-04-12 15:19 | Outpatient (CLI) | payer MEDICARE, SELFPAY ==
[2022-10-23 16:01] VITALS: BMI 24.5
[2023-04-12 17:07] LABS: Appearance Urine UA SL CLOUDY; Bilirubin Urine UA 1+ (NEGATIVE); Color Urine UA YELLOW; Glucose Urine UA NEGATIVE (Negative); Ketones Urine UA TRACE (NEGATIVE); Leukocyte Esterase Urine UA NEGATIVE (NEGATIVE); Nitrite Urine UA NEGATIVE (Negative); Occult Blood Urine UA NEGATIVE (Negative); Protein Urine UA TRACE (Negative); Specific Gravity Urine UA >=1.030 (1.000-1.035); Urobilinogen Urine UA 0.2 E.U./dL (0.2); pH Urine UA 5.5 (4.5-8.0)
[2023-04-12 17:26] LABS: Bacteria Urine Occasional (0-1); Calcium Oxalate Crystals Urine Moderate; Culture Indicated Urine Cult Not Indicated; Ictotest Urine Positive (Negative); Mucus Urine 3+ (Negative); RBC Urine 0-1/HPF (0-5/HPF); Squamous Epithelial Cell Urine 0-1 /HPF (0-5/HPF); WBC Urine 0-1/HPF (0-5/HPF)
== END ==
PROVIDERS: Family Provider Urology; PCP Internal Medicine; Referring Provider Internal Medicine; Visit Provider Internal Medicine
DX: R35.0 Frequency of micturition (principal)
CPT/HCPCS: 81001

== ENCOUNTER → 2023-11-12 15:34 | Outpatient (CLI) | payer MEDICARE, SELFPAY ==
[2022-10-23 16:01] VITALS: BMI 24.5
--- NOTE | 2023-11-12 15:37 | DI.RAD.S_ITS ---
PROCEDURE: XR TOE RT MIN 2V INDICATIONS: toe pain/gout TECHNIQUE: 3 views of the 1st toe(s) acquired. COMPARISON: None. FINDINGS: Bones: Osteoarthritic changes are noted throughout right great toe most notably involving 1st MTP joint with significant joint space narrowing, subchondral sclerosis and marginal osteophyte formation. Subtle radiolucencies involving medial cortex of 1st metatarsal head and adjacent 1st proximal phalangeal base. No suspicious bony lesions. Soft tissues: Significant soft tissue swelling over medial aspect of 1st MTP joint is seen. 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 Dictated by: Ahsan Morris M.D. on 11/12/2023 at 17:22 Approved by: Ahsan Morris M.D. on 11/12/2023 at 17:23
[2023-11-12 17:02] LABS: Hematocrit 43.8 % (41-53); Hemoglobin 15.1 g/dL (13.5-17.5); Mean Corpuscular HGB Conc 34.4 % (30-36); Mean Corpuscular Hemoglobin 33.9 PG (26-34); Mean Corpuscular Volume 98.5 fL (80-100); Platelet Count 396 X10^3/uL (150-400); Red Blood Cell Count 4.44 X10^6/uL (4.5-5.9); Red Cell Distribution Width 13.7 % (11.6-14.8); White Blood Cell Count 8.7 X10^3/uL (4.5-11.0)
[2023-11-12 17:26] LABS: Erythrocyte Sedimentation Rate 14 MM/HR (0-15)
[2023-11-12 17:39] LABS: Alanine Aminotransferase 46 IU/L (<50); Albumin 4.6 g/dL (3.5-5.0); Albumin Globulin Ratio 1.4 (1.0-2.8); Alkaline Phosphatase 110 U/L (38-126); Aspartate Aminotransferase 34 IU/L (17-59); BUN Creatinine Ratio 22.2 (6-22); Bilirubin Total 0.7 mg/dL (0.2-1.3); Blood Urea Nitrogen 22 mg/dL (9-20); C-Reactive Protein Quant < 0.5 mg/dL (<1.0); Carbon Dioxide 27 mmol/L (22-32); Chloride 106 mmol/L (98-107); Estimated Glomerular Filt Rate > 60 mL/min (>60); Globulin 3.3 g/dL (1.7-4.1); Glucose 79 mg/dL (80-110); HEMOLYSIS < 15 (0-50); Potassium 4.5 mmol/L (3.4-5.1); Sodium 139 mmol/L (137-145); Total Protein 7.9 g/dL (6.3-8.2); Uric Acid 5.4 mg/dL (3.5-8.5)
== END ==
LOC: RAD 15:37
PROVIDERS: Family Provider Urology; PCP Internal Medicine; Referring Provider Internal Medicine; Visit Provider Internal Medicine
DX: M10.9 Gout, unspecified (principal)
CPT/HCPCS: 36415; 73660; 80053; 84550; 85027; 85651; 86140

== ENCOUNTER → 2024-01-24 12:36 | Outpatient (CLI) | payer MEDICARE, SELFPAY ==
[2022-10-23 16:01] VITALS: BMI 24.5
--- NOTE | 2024-01-24 | DI.ECHO.S_ITS ---
[place] [facility]---------+ [facility] : : [id number] : : [place] : : [id number] : : Phone: [phone] Echocardiogram Report + + :Name: GIOVANNA BEAVERS Study Date: 01/24/2024 Height: 64 in : :[facility] ReadingLocation: Weight: 141 lb : : Gender: Male BSA: 1.7 m2 : :: 1940 Age: 83 yrs BP: 128/77 mmHg: :Reason For Study: AORTIC STENOSIS : :Ordering Physician: MIGUEL, : :ONOFRE Performed By: Charla Butts : :Referring: ONOFRE GONZALEZ : + + Interpretation Summary 1) Normal left ventricular size, thickness, and systolic function (EF 55-60%). 2) Normal right ventricular size and function. 3) There is moderate aortic stenosis (valve area 1.1cm2 mean gradient 21mmHg, severity ratio 0.31). 4) Compared to the Echo done 10/24/2022, no significant change. Procedure: A two-dimensional transthoracic echocardiogram with color flow and Doppler was performed. The study quality was technically adequate. Comparison is made with the echocardiogram of 10/24/2022. The patient was in sinus bradycardia with heart rates between 49-59 bpm during the exam. The patient had occasional PVCs during the exam. Left Ventricle: The left ventricle is normal in size and wall thickness. The ejection fraction is estimated to be 55-60%. There are no focal wall motion abnormalities. Diastolic parameters suggest a relaxation abnormality of the left ventricle, consistent with probable normal filling pressures. Right Ventricle: The right ventricle is at the upper limits of normal in size. The right ventricular systolic function is normal. Atria: The left atrial size is normal. Right atrial size is normal. There is no Doppler evidence for an interatrial shunt. Mitral Valve: The mitral valve is normal in structure and function. There is trace mitral regurgitation. Aortic Valve: The aortic valve is moderately calcified. There is mildly reduced leaflet mobility. The peak aortic velocity is 2.9 m/sec. The aortic valve mean gradient is 21 mmHg. The calculated aortic valve area is 1.1 cm2. There is moderate aortic stenosis. There is mild aortic regurgitation. Tricuspid Valve: The tricuspid valve is normal in structure and function. There is mild tricuspid regurgitation. The right ventricular systolic pressure is estimated to be at least 31 mmHg based on an estimated right atrial pressure of 3 mm Hg. Pulmonic Valve: The pulmonic valve leaflets are thin and pliable; valve motion is normal. There is no pulmonic valvular regurgitation. Great Vessels: The aortic root is normal size. The ascending aorta is at the upper limits of normal in size. The IVC is of normal diameter and collapses greater than 50% with a sniff. This suggests a low right atrial pressure of 3 mm Hg. Pericardium/ Pleura There is no pericardial effusion. There is no pleural effusion. MMode/2D Measurements & Calculations LVIDd: 5.2 cm LVOT diam: 2.2 cm LVIDs: 3.7 cm Ao root diam: 3.5 cm FS: 28.5 % asc Aorta Diam: 3.9 cm IVSd: 0.76 cm Ao Arch Diam (Prox Trans): 3.3 cm LVPWd: 0.74 cm LV dewitt. diameter/BSA (cm/m^2): 3.1 LV sys. diameter/BSA (cm/m^2): 2.2 LA A2 area: 20.5 cm2 RA long axis: 4.4 cm LA A4 area: 14.7 cm2 RA area: 13.2 cm2 LA length (vol): 4.9 cm RA vol: 33.8 ml LA vol: 52.6 ml RA : 20.0 ml/m2 LA vol index: 31.2 ml/m2 IVC diam: 0.98 cm RVD1 (basal): 4.0 cm TAPSE: 2.0 cm Doppler Measurements & Calculations Ao V2 max: 293.4 cm/sec LVOT Max Naga: 80.6 cm/sec Ao V2 mean: 219.9 cm/sec LV V1 max P.6 mmHg Ao max P.6 mmHg LV V1 VTI: 19.9 cm Ao mean P.4 mmHg DENNIS(I,D): 1.2 cm2 Ao V2 VTI: 63.9 cm DENNIS(V,D): 1.1 cm2 sev ratio: 0.31 DENNIS indexed to BSA (cm^2/m^2): 0.73 AI P1/2t: 1059 msec AI dec slope: 89.7 cm/sec2 MV E max naga: 63.1 cm/sec TR max naga: 265.7 cm/sec MV A max naga: 79.5 cm/sec TR max P.2 mmHg MV E/A: 0.79 PA V2 max: 101.6 cm/sec Med Peak E' Naga: 4.2 cm/sec PA V2 mean: 73.8 cm/sec E/E' med: 15.2 PA mean P.4 mmHg Lat Peak E' Naga: 6.7 cm/sec PA pr(Accel): 34.5 mmHg E/E' lat: 9.5 E/e' average: 12.3 MV dec time: 0.27 sec SV(LVOT): 79.2 ml Reading Physician:04:36 PM
== END ==
PROVIDERS: Family Provider Urology; PCP Internal Medicine; Referring Provider Internal Medicine Cardiovascular Disease; Visit Provider Internal Medicine Cardiovascular Disease
DX: I08.2 Rheumatic disorders of both aortic and tricuspid valves (principal)
CPT/HCPCS: 93306

== ENCOUNTER → 2024-04-15 13:27 | Outpatient (CLI) | payer MEDICARE, SELFPAY ==
[2022-10-23 16:01] VITALS: BMI 24.5
[2024-04-15 14:25] LABS: Hemoglobin 15.4 g/dL (13.5-17.5); Mean Corpuscular HGB Conc 34.9 % (30-36); Mean Corpuscular Hemoglobin 35.4 PG (26-34); Mean Corpuscular Volume 101.3 fL (80-100); Platelet Count 446 X10^3/uL (150-400); Red Blood Cell Count 4.34 X10^6/uL (4.5-5.9); Red Cell Distribution Width 14.2 % (11.6-14.8); White Blood Cell Count 8.4 X10^3/uL (4.5-11.0)
[2024-04-15 14:39] LABS: Alanine Aminotransferase 37 IU/L (<50); Albumin 4.1 g/dL (3.5-5.0); Albumin Globulin Ratio 1.2 (1.0-2.8); Alkaline Phosphatase 95 U/L (38-126); Aspartate Aminotransferase 37 IU/L (17-59); BUN Creatinine Ratio 20.7 (6-22); Bilirubin Total 0.8 mg/dL (0.2-1.3); Blood Urea Nitrogen 17 mg/dL (9-20); Calcium 9.7 mg/dL (8.4-10.2); Carbon Dioxide 24 mmol/L (22-32); Chloride 103 mmol/L (98-107); Cholesterol 190 mg/dL (140-199); Estimated Glomerular Filt Rate > 60 mL/min (>60); Globulin 3.3 g/dL (1.7-4.1); Glucose 103 mg/dL (80-110); HDL Cholesterol 87 mg/dL (40-60); HEMOLYSIS 16 (0-50); LDL Cholesterol Calculated 72 mg/dL (<100); Potassium 4.8 mmol/L (3.4-5.1); Sodium 135 mmol/L (137-145); Total Protein 7.4 g/dL (6.3-8.2); Triglycerides 153 mg/dL (35-150); Uric Acid 2.8 mg/dL (3.5-8.5)
== END ==
PROVIDERS: Family Provider Urology; PCP Internal Medicine; Referring Provider Internal Medicine; Visit Provider Internal Medicine
DX: E78.2 Mixed hyperlipidemia (principal); M10.9 Gout, unspecified; I10 Essential (primary) hypertension
CPT/HCPCS: 36415; 80053; 80061; 84550; 85027

== ENCOUNTER → 2025-06-02 11:20 | Outpatient (CLI) | payer MEDICARE, SELFPAY ==
[2022-10-23 16:01] VITALS: BMI 24.5
[2025-06-02 12:00] LABS: Hematocrit 44.7 % (41-53); Hemoglobin 15.3 g/dL (13.5-17.5); Mean Corpuscular HGB Conc 34.3 % (30-36); Mean Corpuscular Hemoglobin 34.6 PG (26-34); Mean Corpuscular Volume 101.0 fL (80-100); Platelet Count 278 X10^3/uL (150-400)
[2025-06-02 12:31] LABS: Alanine Aminotransferase 24 IU/L (<50); Albumin 4.4 g/dL (3.5-5.0); Albumin Globulin Ratio 1.6 (1.0-2.8); Alkaline Phosphatase 80 U/L (38-126); Blood Urea Nitrogen 17 mg/dL (9-20); Calcium 9.3 mg/dL (8.4-10.2); Carbon Dioxide 24 mmol/L (22-32); Chloride 104 mmol/L (98-107); Cholesterol 169 mg/dL (140-199); Estimated Glomerular Filt Rate > 60 mL/min (>60); Globulin 2.8 g/dL (1.7-4.1); Glucose 92 mg/dL (70-99); HDL Cholesterol 91 mg/dL (40-60); HEMOLYSIS 50 (0-50); Potassium 4.8 mmol/L (3.4-5.1); Sodium 136 mmol/L (137-145); Total Protein 7.2 g/dL (6.3-8.2); Triglycerides 129 mg/dL (35-150)
[2025-06-02 13:05] LABS: TSH w/ Reflex to FT4 1.55 uIU/mL (0.47-4.68)
== END ==
PROVIDERS: Family Provider Urology; PCP Internal Medicine; Referring Provider Internal Medicine; Visit Provider Internal Medicine
DX: I25.10 Atherosclerotic heart disease of native coronary artery without angina pectoris (principal); E78.2 Mixed hyperlipidemia; I10 Essential (primary) hypertension
CPT/HCPCS: 36415; 80053; 80061; 84443; 85027